=== PATIENT | female | born 1945 | race African-American/Black ===

== ENCOUNTER 2016-06-25 18:20 | Emergency (ER) | payer OTHER ==
[~2016-06-25] VITALS: Ht 162.6 cm; Wt 85.7 kg
[~2016-06-25 18:20] MED LIST: AUGMENTIN 875-1 EACH PO; DOXYCYCLINE HY100 M2 PO; FLONASE ALLERG9.9 ML NAS; IBU600 MG PO; LISINOPRIL HCTZ1 TAB PO; METFORMIN1000 MG PO; PREDNISONE20 M1 PO; PROAIR RESPICL90 MCG PO; SIMVASTATIN20 MG PO; SYNTHROID50 MCG PO; TESSALON PERLE100 M1 PO; ZITHROMAX250 M2 PO
[2016-06-25 18:25] VITALS: BP 150/84
[2016-06-25] MEDS ORDERED: SIMVASTATIN40 M1 PO (18:48)
[2016-06-25] MEDS ORDERED: METFORMIN HCL500 M4 PO (18:48)
[2016-06-25] MEDS ORDERED: HYDROCHLOROTHIA25 M1 PO (18:50)
[2016-06-25] MEDS ORDERED: FLONASE ALLERG9.9 ML NASB (18:51)
[2016-06-25] MEDS ORDERED: ALLERGY EYE DRO15 ML OP (18:52)
--- NOTE | 2016-06-25 19:00 | ED INFLUENZA/URI COMPLAINT ---
History of Present Illness General Chief Complaint: Allergy Symptoms Stated Complaint: PT HAS ALLEGRY PROBLEM Source: patient Exam Limitations: no limitations Vital Signs & Intake/Output Vital Signs & Intake/Output Vital Signs Date Time Temp Pulse Resp B/P B/P Pulse O2 O2 Flow FiO2 Mean Ox Delivery Rate 06/25 1825 97.8 74 18 150/84 98 Room Air Allergies Coded Allergies: NO KNOWN ALLERGIES (02/20/16) Reconcile Medications Fluticasone Propionate (Flonase Allergy Relief) 50 MCG/ACTUATION SPRAY.SUSP 2 SPRAY NASB PRN ALLERGIES (Reported) Hydrochlorothiazide (Unknown Strength) TABLET (Unknown Dose) PO DAILY DIURETIC (Reported) Levothyroxine Sodium (Synthroid) 50 MCG TABLET 1 TAB PO DAILY AC THYROID ( Reported) Metformin HCl (Metformin HCl ER) 500 MG TAB.ER.24H 1 TAB PO QPM DM (Reported) Mometasone Furoate (Nasonex) 50 MCG SPRAY.PUMP 2 SPRAY NASB DAILY nasal spray Naphazoline HCl/Pheniramine (Allergy Eye Drops) (Unknown Strength) DROPS ( Unknown Dose) OP DAILY PRN ALLERGIES- BOTH EYES (Reported) Olopatadine HCl (Patanol) 0.1 % DROPS 1 GTT OPH BID conjunctivitis Simvastatin (Simvastatin*) 40 MG TABLET 1 TAB PO QAM CHOLESTEROL (Reported) Triage Note: PT COMPLAINS OF STUFFY EYES , RED SWOLLEN, SINUS PRESSURE, TAKING CLARITIN WITH NO RELIEF Triage Nurses Notes Reviewed? yes Onset: Abrupt Duration: day(s):, constant, continues in ED Timing: recent history Severity: moderate, severe No Modifying Factors: none HPI: 70-year-old female comes into emergency room for further evaluation of runny nose, itchiness to her eyes, swelling of eyes. Symptoms going on for the past couple days. Denies any fever. Denies any vomiting. Some sinus congestion associated with it. Patient has been taking Claritin with no relief. Denies any other associated symptoms. Nothing seemed to make the symptoms better or worse. (NEAL MIRANDA) Past History Travel History Traveled to [place] past 21 day No Medical History Any Pertinent Medical History? 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 No (NEAL MIRANDA) Review of Systems Review of Systems Constitutional: Reports: no symptoms. EENTM: Reports: see HPI. Respiratory: Reports: no symptoms. Cardiovascular: Reports: no symptoms. GI: Reports: no symptoms. Genitourinary: Reports: no symptoms. Musculoskeletal: Reports: no symptoms. Skin: Reports: no symptoms. Neurological/Psychological: Reports: no symptoms. Hematologic/Endocrine: Reports: no symptoms. Immunologic/Allergic: Reports: no symptoms. All Other Systems: Reviewed and Negative (NEAL MIRANDA) Physical Exam Physical Exam General Appearance: well developed/nourished, alert, awake Head: atraumatic, normal appearance Eyes: Bilateral: PERRL, other (sclera mildly injected.). Ears, Nose, Throat: normal ENT inspection, moist mucous membrane Neck: normal inspection, full range of motion Respiratory: normal breath sounds, no respiratory distress Cardiovascular: regular rate/rhythm Back: normal inspection Extremities: normal inspection, normal range of motion, no edema Neurologic/Psych: awake, alert, oriented x 3, normal gait Skin: intact, normal color Core Measures Severe Sepsis Present: No Septic Shock Present: No (NEAL MIRANDA) Progress Differential Diagnosis: influenza, meningitis, neutropenia, otitis, pneumonia, pharyngitis, sinusitis, allergic rhinitis, allergic conjunctivitis, Plan of Care: 06/25/2016 7:28:40 PM Patient clinically looks well. Symptoms are more allergic in nature. Follow-up with primary care doctor. Return if any concerns worsening symptoms. Patient understands and agrees with plan of care. Initial ED EKG: none Prior EKG: unchanged (NEAL MIRANDA) Departure Departure Disposition: HOME OR SELF CARE Condition: Stable Clinical Impression Primary Impression: Allergic conjunctivitis and rhinitis Referrals: MAKAYLA BELCHER DO (PCP/Family) Additional Instructions: Use pantanol and Nasonex as prescribed. Follow-up with your primary care doctor. Return if any concerns worsening symptoms. Please go over all results of today's visit with your primary care doctor. Contact your primary care doctor to let them know you were here in the emergency room. There may be nonspecific findings which may not be related to your visit today here in the emergency room but may require further evaluation and chronic monitoring by your primary care doctor. If you had a laceration today the chance of foreign body always remains. You should follow-up with your primary care doctor for recheck in 3-5 days for a wound check. If you had an x-ray done there is a chance that a fracture could have been missed on initial read and you should follow-up with your primary care doctor for repeat x-rays if symptoms persist. If your blood pressure was elevated here in the emergency room please have rechecked by her primary care doctor within the next 48 hours by your primary care doctor. If you were prescribed a narcotic here in the emergency room or any type of controlled substances you're not allowed to drive while taking this medication or operate any type of heavy machinery. Narcotics can make you feel lightheaded dizziness nausea and can cause constipation. You may need to hand picker a stool softener. Thank you for choosing [facility] emergency room. Please return to the emergency room immediately if you have any other concerns worsening of symptoms. Departure Forms: Customer Survey General Discharge Information Prescriptions: Current Visit Scripts Olopatadine HCl (Patanol) 1 GTT OPH BID #10 ML Mometasone Furoate (Nasonex) 2 SPRAY NASB DAILY #1 INHAL (NEAL MIRANDA) PA/PARKING ASSISTANT Co-Sign Statement Statement: ED Attending supervision documentation- [X] I saw and evaluated the patient. I have also reviewed all the pertinent lab results and diagnostic results. I agree with the findings and the plan of care as documented in the PA's/PARKING ASSISTANT's documentation. [X] I have reviewed the ED Record and agree with the PA's/PARKING ASSISTANT's documentation. [] Additions or exceptions (if any) to the PAs/PARKING ASSISTANT's note and plan are summarized below: [] (CARMENCITA CARMICHAEL,MELIA Junior)
[2016-06-25] MEDS ORDERED: NASONEX17 GM NASB (19:04)
[2016-06-25] MEDS ORDERED: PATANOL5 ML OPH (19:04)
== END 2016-06-25 19:20 ==
LOC: ERH 18:20
DX: H10.13 Acute atopic conjunctivitis, bilateral (principal); J30.9 Allergic rhinitis, unspecified

== ENCOUNTER 2016-08-23 16:57 | Emergency (ER) | payer OTHER ==
[~2016-08-23] VITALS: Ht 162.6 cm; Wt 85.7 kg
[~2016-08-23 16:57] MED LIST changes: +ALLERGY EYE DRO15 ML OP; +FLONASE ALLERG9.9 ML NASB; +HYDROCHLOROTHIA25 M1 PO; +METFORMIN HCL500 M4 PO; +NASONEX17 GM NASB; +PATANOL5 ML OPH; +SIMVASTATIN40 M1 PO
--- NOTE | 2016-08-23 18:05 | ED GENERAL ADULT ---
History of Present Illness General Chief Complaint: Animal/Insect Bite Stated Complaint: BUG BITE LFT HAND Source: patient Exam Limitations: no limitations Vital Signs & Intake/Output Vital Signs & Intake/Output Vital Signs Date Time Temp Pulse Resp B/P B/P Pulse O2 O2 Flow FiO2 Mean Ox Delivery Rate 08/23 1958 98.5 65 20 118/60 Room Air 08/23 1704 97.8 82 16 123/75 98 Room Air Allergies Coded Allergies: NO KNOWN ALLERGIES (02/20/16) Triage Note: 70F C/O LEFT TOP OF HAND SWELLING WITH WARMTH SINCE LAST NIGHT, UNSURE IF BIT BY SOMETHING. NO BITE TELMA OBSERVED, SKIN INTACT. PUFFY SWELLING NOTED. +ITCHING/-PAIN. COLD COMPRESSES AND ALEVE 4 HOURS AGO WITH MINIMAL RELIEF. AFEBRILE Triage Nurses Notes Reviewed? yes HPI: 70-year-old female with a history of diabetes, hypertension, hyperlipidemia, hypothyroid presenting with atraumatic left hand swelling since yesterday. He reports that the back of her hand and initially felt periodic, did not notice any insect bites or rashes. [place] gradual onset of swelling throughout the night. Has been trying Motrin and ice without relief. Denies trauma. Denies fevers, numbness or paresthesias. (DELMAR RANGEL,DENISHA) Reconcile Medications Diphenhydramine HCl (Benadryl) 25 MG CAPSULE 1 CAP PO EVERY 6 HOUR allergic reaction Levothyroxine Sodium (Synthroid) 50 MCG TABLET 1 TAB PO DAILY AC THYROID ( Reported) Lisinopril/Hydrochlorothiazide (Lisinopril-Hctz 20-25 MG Tab) 20 MG-25 MG TABLET 1 TAB PO DAILY BP (Reported) Metformin HCl (Metformin HCl ER) 500 MG TAB.ER.24H 1 TAB PO QAM DM (Reported) Metformin HCl (Metformin HCl ER) 500 MG TAB.ER.24H 2 TAB PO QPM DM (Reported) Simvastatin (Simvastatin*) 40 MG TABLET 1 TAB PO QAM CHOLESTEROL (Reported) (CHARLES CARMICHAEL,FAITH) Past History Travel History Traveled to [place] past 21 day No Medical History Any Pertinent Medical History? 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 No (DENISHA JACOBSEN PA-C) Review of Systems Review of Systems Constitutional: Reports: no symptoms. Respiratory: Reports: no symptoms. Cardiovascular: Reports: no symptoms. GI: Reports: no symptoms. Genitourinary: Reports: no symptoms. Musculoskeletal: Reports: see HPI (left hand swelling). Skin: Reports: no symptoms. Neurological/Psychological: Reports: no symptoms. (DENISHA JACOBSEN PA-C) Physical Exam Physical Exam General Appearance: well developed/nourished, no apparent distress, alert, awake , comfortable Head: atraumatic Respiratory: normal breath sounds, lungs clear Cardiovascular: regular rate/rhythm, normal peripheral pulses Extremities: on exam there is edema to the dorsum of the left hand confined to the area of the metacarpals, does not involve the phalanges. There is no erythema, increased warmth, abrasions, lacerations, ecchymosis, insect bites. Sensation is intact to the median/radial/ulnar nerves. Motor strength is 5 out of 5 with flexion/extension of the digits, interosseous strength, hand wireless development manager strength. Cap refill less than 2 seconds. There is no point tenderness to palpation. Under strict range of motion at all MCP/PIPs/DIPs. Neurologic/Psych: awake, alert, oriented x 3, normal mood/affect Core Measures ACS in differential dx? No CVA/TIA Diagnosis: No Severe Sepsis Present: No Septic Shock Present: No (DENISHA JACOBSEN PA-C) Progress Differential Diagnoses I considered the following diagnoses in my evaluation of the patient: [Allergic reaction versus cellulitis vs abscess versus spontaneous fracture] Plan of Care: Hand x-ray was unremarkable. Exam shows no signs of cellulitis, including no erythema or increased warmth. Suspect possible allergic reaction as the area is pruritic. Patient instructed to try a course of Benadryl around the clock for 48 hours. Shechter to continue cold compresses to help alleviate swelling. Will follow up with her primary care provider in the next 2 days. Initial ED EKG: none (DENISHA JACOBSEN PA-C) Departure Departure Disposition: HOME OR SELF CARE Condition: Stable Clinical Impression Primary Impression: Swelling of left hand Referrals: MAKAYLA BELCHER DO (PCP/Family) Additional Instructions: History 5 mg of Benadryl every 6 hours for the next 48 hours. Apply cold compresses to the swollen area 2-3 times daily to help alleviate swelling. Follow-up with her primary care provider in the next 2 days for reevaluation. Return to the ED for any new or worsening symptoms. Departure Forms: Customer Survey General Discharge Information (DENISHA JACOBSEN PA-C) Departure Prescriptions: Current Visit Scripts Diphenhydramine HCl (Benadryl) 1 CAP PO EVERY 6 HOUR 2 Days PA/TECHNICAL SERVICES LIBRARIAN Co-Sign Statement Statement: ED Attending supervision documentation- [X] I saw and evaluated the patient. I have also reviewed all the pertinent lab results and diagnostic results. I agree with the findings and the plan of care as documented in the PA's/TECHNICAL SERVICES LIBRARIAN's documentation. [X] I have reviewed the ED Record and agree with the PA's/TECHNICAL SERVICES LIBRARIAN's documentation. [] Additions or exceptions (if any) to the PAs/TECHNICAL SERVICES LIBRARIAN's note and plan are summarized below: [] (CHARLES CARMICHAEL,FAITH) Critical Care Note Critical Care Note Critical Care Time: non-applicable (DENISHA JACOBSEN PA-C)
[2016-08-23] MEDS ORDERED: METFORMIN HCL500 M4 PO ×2 (19:00)
[2016-08-23] MEDS ORDERED: LISINOPRIL-HCT1 EAC1 PO (19:01)
--- NOTE | 2016-08-23 19:13 | RADIOLOGY REPORT ---
EXAMINATION: XR HAND, LEFT CLINICAL INFORMATION: Swelling dorsum of left hand. Tenderness over the fourth metacarpal. COMPARISON: None TECHNIQUE: AP, lateral, and oblique views of the left hand. FINDINGS: No fracture. No dislocation. Bone and joint are normal. IMPRESSION: Normal left hand.
[2016-08-23] MEDS ORDERED: BENADRYL25 MG PO (19:50)
[2016-08-23 19:59] VITALS: BP 118/60
== END 2016-08-23 19:57 ==
LOC: ERH 16:57
DX: M79.89 Other specified soft tissue disorders (principal)
CPT/HCPCS: 73130-LT

== ENCOUNTER → 2016-09-06 | Day surgery (SDC) | payer OTHER ==
[~2016-09-06] VITALS: Ht 162.6 cm; Wt 86.2 kg
[~2016-09-06] MED LIST changes: +BENADRYL25 MG PO; +LISINOPRIL-HCT1 EAC1 PO; +[UNRECOGNIZED DRUG - OTHER]
--- NOTE | 2016-09-06 10:34 | Operative Report ---
Operative/Inv Procedure Report Surgery Date: 09/06/16 Name of Procedure: Cataract extraction lens implantation left eye Pre-Operative Diagnosis: Age-related cataract left eye 20/40 vision 20/500 glare vision Post-Operative Diagnosis: Same Estimated Blood Loss: none Surgeon/Industrial Recruiter: NESTOR CARMICHAEL,CASE Alba Anesthesia: local monitored anesthesi Complications: None Operative/Procedure Note Note: The patient was brought to the operating room standard monitoring equipment was attached the patient was prepped and draped in the usual fashion for intraocular surgery. A lid speculum was placed to retract the lids. The case was begun by making a temporal incision with a 2.4 mm keratome. The eye was stabilized with a Rangel ring during this incision. 1 mL of non-preserved lidocaine was introduced into the anterior chamber to provide anesthesia. The anterior chamber was then filled and deepened with viscoelastic. A curvilinear capsulorrhexis was achieved using a 30-gauge needle and is a cystotome and capsulorrhexis was finished using a Utrata forceps. A second or paracentesis incision was made temporally with a 1 mm MVR blade. The lens was then hydrodissected with balanced salt solution and found to be rotatable. The lens was emulsified using phacoemulsification and a modified four-quadrant cracking technique. The residual cortical material was removed using automated irrigation and aspiration and as much of the anterior capsular rim was cleaned as well as possible. The posterior capsule was cleaned first with the automated machine on a low setting and then manually with a Kishan squeegee. The capsular bag was deepened with viscoelastic. The lens a Technis 1 23.0 Diopter placed into the bag under direct visualization and rotated so that the haptics were at 12 and 6:00. Viscoelastic was then removed from the eye by flushing it out and then by automated irrigation and aspiration. The eye was pressurized to a normal tone. 1/10 of a cc of vancomycin solution was introduced into the anterior chamber to provide antibiotic prophylaxis. The wounds were sealed by hydrating the stroma adjacent to them and the eye was left at a proper tone after the wounds were checked and found not to be leaking. The lid speculum was removed from the orbit. Antibiotic and steroid drops were placed on the eye and then the eye was shielded. Monitoring equipment was removed from the patient and the patient was removed from the operative suite to the holding area. The patient tolerated the procedure well and will be seen in the office tomorrow.
== END ==
LOC: STS 01:45
DX: H25.9 Unspecified age-related cataract (principal); E11.9 Type 2 diabetes mellitus without complications; Z79.84 Long term (current) use of oral hypoglycemic drugs; E03.9 Hypothyroidism, unspecified; I10 Essential (primary) hypertension
CPT/HCPCS: J2250; V2632

== ENCOUNTER 2017-04-03 16:21 | Inpatient (IN) | payer OTHER ==
[~2017-04-03] VITALS: Ht 162.6 cm; Wt 84.4 kg
--- NOTE | 2017-04-03 17:10 | ED INFLUENZA/URI COMPLAINT ---
History of Present Illness General Chief Complaint: Upper Respiratory Sx/Fever Stated Complaint: COUGH,CHILLS Source: patient Exam Limitations: no limitations Vital Signs & Intake/Output Vital Signs & Intake/Output Vital Signs Date Time Temp Pulse Resp B/P B/P Pulse O2 O2 Flow FiO2 Mean Ox Delivery Rate 04/03 2038 101.8 110 20 145/82 96 Room Air 04/03 1938 Room Air 04/03 1700 100.6 04/03 1646 100.6 108 18 178/87 97 Room Air Room Air Allergies Coded Allergies: NO KNOWN ALLERGIES (02/20/16) Reconcile Medications [HYDROCHLOOTHIAZIDE] HTN (Reported) Levothyroxine Sodium (Synthroid) 50 MCG TABLET 1 TAB PO DAILY AC THYROID ( Reported) Lisinopril/Hydrochlorothiazide (Lisinopril-Hctz 20-25 MG Tab) 20 MG-25 MG TABLET 1 TAB PO DAILY BP (Reported) Metformin HCl (Metformin HCl ER) 500 MG TAB.ER.24H 1 TAB PO QAM DM (Reported) Metformin HCl (Metformin HCl ER) 500 MG TAB.ER.24H 2 TAB PO QPM DM (Reported) Simvastatin (Simvastatin*) 40 MG TABLET 1 TAB PO QAM CHOLESTEROL (Reported) Triage Note: PT TO ED WITH C/O COUGH, CONGESTION CHILLS, TEMP 100.6 IN TRIAGE. Triage Nurses Notes Reviewed? yes Onset: Gradual Duration: day(s): (2-3) Timing: remote history Severity: moderate Severity Numbers: 8 Prior Episodes/Possible Cause: occassional episodes No Modifying Factors: none Associated Symptoms: cough, fever/chills, nasal congestion, nasal drainage HPI: Patient is a 71-year-old female with hypertension and diabetes presenting to the emergency department with chief complaint of generalized body aches, tactile fevers and chills that have been going on for the past 2-3 days. Positive nasal congestion, positive productive cough. Has been using [id number] medication without relief. Denies nausea or vomiting. No chest pain or shortness of breath. Denies sick contacts or recent travel. No recent antibiotic use. Denies abdominal pain. No change in bowel or bladder function. (Gerhard PHAN,Viviana) Past History Travel History Traveled to [place] past 21 day No Medical History Any Pertinent Medical History? 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 No (Viviana Lopez) Review of Systems Review of Systems Constitutional: Reports: see HPI, chills, fever, malaise. Comments Review of systems: See HPI, All other systems negative. Constitutional, no weight loss HEENT: No visual changes no sore throat Cardiovascular: No chest pain ,palpitation , orthopnea or ankle swelling Skin, no jaundice no rashes Respiratory: No dyspnea OR hemoptysis GI: No nausea no vomiting : No dysuria No hematuria Muscle skeletal: no back pain, no neck pain, Neurologic: No numbness no confusion NO HEADACHES Psych: No stress anxiety or depression,. Heme/endocrine: No bruising no bleeding no polyuria or polydipsia Immunology: No splenectomy or history of AIDS (Viviana Lopez) Physical Exam Physical Exam General Appearance: well developed/nourished, no apparent distress, alert, awake , comfortable Ears, Nose, Throat: nasal congestion, nasal drainage Comments: Well-developed well-nourished person in no acute distress HEENT: Pupils equally round and reactive to light and accommodation. Nose is atraumatic. External auditory canal and Tympanic membranes clear. Pharynx normal. No swelling or edema. Clear nasal discharge bilaterally. Neck: Supple, no lymphadenopathy, normal range of motion without pain or tenderness Back: Nontender Cardiovascular: Tachycardic rate and rhythms no murmurs rubs or gallops, normal JVP Respiratory: Chest nontender. No respiratory distress.breath sounds diminished to auscultation bilaterally Abdomen: Soft, nontender nondistended, no appreciable organomegaly. Normal bowel sounds. No ascites Extremity: No edema, no calf tenderness to palpation, normal and equal pulses. Neuro: Alert oriented x3 Skin: No appreciable rash on exposed skin, skin is warm and dry. Psych: Mood and affect is normal, memory and judgment is normal. Core Measures Sepsis Present: No Sepsis Focused Exam Completed? No (Gerhard PA,Viviana) Progress Differential Diagnosis: influenza, pneumonia, pharyngitis, sinusitis Plan of Care: Orders Procedure Date/time Status Consistent Carbohydrate 1 04/04 B Active LACTIC ACID 04/03 2330 Active Misc Message 04/03 2153 Active ED Holding Orders 04/03 2153 Active Admit to inpatient 04/03 2153 Active Vital Signs 04/03 2153 Active Code Status 04/03 2153 Active LACTIC ACID 04/03 2030 Active EKG 04/03 1952 Active BLOOD CULTURE 04/03 1739 Active COMPREHENSIVE METABOLIC PANEL 04/03 1739 Complete CBC WITHOUT DIFFERENTIAL 04/03 1739 Complete RAPID VIRAL INFLUENZA A 04/03 1653 Complete Current Medications Sig/Carlyle Start time Last Medication Dose Stop Time Status Admin Sodium Chloride 1,000 ML BOLUS ONE 04/03 2044 AC 04/03 (Normal Saline 0.9%) 04/03 Laboratory Tests 04/03/17 1950: Anion Gap 14, Estimated GFR > 60, BUN/Creatinine Ratio 11.1, Glucose 115 H, Calcium 9.6, Total Bilirubin 0.5, AST 23, ALT 17, Alkaline Phosphatase 86, Total Protein 8.1, Albumin 4.3, Globulin 3.8, Albumin/Globulin Ratio 1.1, CBC w Diff NO MAN DIFF REQ, RBC 4.81, MCV 77.6 L, MCH 24.4 L, MCHC 31.5 L, RDW 15.3 H, MPV 7.1 L, Gran % 74.5, Lymphocytes % 16.2 L, Monocytes % 9.0, Eosinophils % 0.2, Basophils % 0.1, Absolute Granulocytes 5.1, Absolute Lymphocytes 1.1 L, Absolute Monocytes 0.6, Absolute Eosinophils 0, Absolute Basophils 0 Microbiology 04/03 2022 BLOOD: Blood Culture - RECD 04/03 1958 BLOOD: Blood Culture - RECD 04/03 1657 NASOPHARYN: Influenza Virus A & B Rapid Smear - COMP INFLUENZA TYPE A Patient still febrile after Tylenol. IV fluids initiated. Still pending lactic acid. Patient treated for pneumonia and influenza. Patient will be admitted to the hospital for pneumonia and influenza. Patient feeling slightly improved after breathing treatment. Oxygen saturation remains within normal limits. Diagnostic Imaging: Viewed by Me: Radiology Read. Discussed w/RAD: Radiology Read. Radiology Impression: PATIENT: JOSE MONTEMAYOR PRESENT AGE: 71 PATIENT ACCOUNT NO: [id number] : 46 LOCATION: [facility] ORDERING PHYSICIAN: Viviana HPAN SERVICE DATE: 04/03/17 EXAM TYPE: RAD - XRY-CHEST XRAY, TWO VIEWS EXAMINATION: XR CHEST CLINICAL INFORMATION: Rule out pneumonia shortness of breath congestion COMPARISON: Prior chest October 2015 TECHNIQUE: 2 views of the chest were obtained. FINDINGS: There is focal opacity in the left lower lobe There is additional generalized increase in interstitial markings throughout both lungs. The cardiac silhouette is normal. Bone and soft tissues: Unremarkable. IMPRESSION: Focal consolidation the left lower lobe suspicious for pneumonia. Mild increased interstitial markings bilaterally concerning for concomitant mild pulmonary edema\E\or pulmonary vascular congestion. DICTATED BY: Kain Ann MD DATE/TIME DICTATED:04/03/171725 WESTERN PHILOSOPHY PROFESSOR:CORRINE DATE/TIME TRANSCRIBED:04/03/171725 CONFIDENTIAL, DO NOT COPY WITHOUT APPROPRIATE AUTHORIZATION. <Electronically signed in Other Vendor System> SIGNED BY: Kain Ann MD 04/03/171732 Initial ED EKG: NSR (64 BPM) (Viviana Lopez) Departure Departure Time of Disposition: 2112 Disposition: STILL A PATIENT Condition: Stable Clinical Impression Primary Impression: Pneumonia Qualifiers: Pneumonia type: due to unspecified organism Laterality: unspecified laterality Lung location: unspecified part of lung Qualified Code: J18.9 - Pneumonia, unspecified organism Secondary Impressions: Influenza A Referrals: Pravin Ricketts DO (PCP/Family) Departure Forms: Customer Survey General Discharge Information Admission Note Spoke With: Kaden Nielsen MD Documentation of Exam: Documentation of any treatments & extenuating circumstances including Concerns Regarding Discharge (functional status, medication knowledge or non-compliance, living conditions, etc.) that warrant an admission rather than observation: Patient requiring IV antibiotics for influenza, serial breathing treatments, Tamiflu, any pulmonology consultation, blood cultures to return, discharged at this time is medically harmful. Due to history of comorbidities and complex nature of having both influenza and pneumonia patient will be in there for treatment. (Viviana Lopez) PA/CRABBER Co-Sign Statement Statement: ED Attending supervision documentation- [X] I saw and evaluated the patient. I have also reviewed all the pertinent lab results and diagnostic results. I agree with the findings and the plan of care as documented in the PA's/CRABBER's documentation. Patient presents for evaluation of flulike symptoms. Physical examination reveals no acute respiratory distress and clear breath sounds bilaterally. [] I have reviewed the ED Record and agree with the PA's/CRABBER's documentation. [] Additions or exceptions (if any) to the PAs/CRABBER's note and plan are summarized below: [] (Janett CARMICHAEL,Rob Andrade) Critical Care Note Critical Care Note Critical Care Time: 30-74 min (Gerhard PHAN,Viviana)
--- NOTE | 2017-04-03 17:33 | RADIOLOGY REPORT ---
EXAMINATION: XR CHEST CLINICAL INFORMATION: Rule out pneumonia shortness of breath congestion COMPARISON: Prior chest October 2015 TECHNIQUE: 2 views of the chest were obtained. FINDINGS: There is focal opacity in the left lower lobe There is additional generalized increase in interstitial markings throughout both lungs. The cardiac silhouette is normal. Bone and soft tissues: Unremarkable. IMPRESSION: Focal consolidation the left lower lobe suspicious for pneumonia. Mild increased interstitial markings bilaterally concerning for concomitant mild pulmonary edema\E\or pulmonary vascular congestion.
[2017-04-03 20:02] LABS: ABSOLUTE BASOPHIL COUNT 0 /CUMM (0.0-0.2); ABSOLUTE EOSINOPHIL COUNT 0 /CUMM (0.0-0.7); ABSOLUTE GRANULOCYTE CT 5.1 /CUMM (1.4-6.5); ABSOLUTE LYMPH COUNT 1.1 /CUMM (1.2-3.4); ABSOLUTE MONOCYTE COUNT 0.6 /CUMM (0.10-0.60); BASOPHIL % 0.1 % (0.0-2.0); EOSINOPHIL % 0.2 % (0-5); HEMATOCRIT 37.3 % (37-47); MEAN CORPUSCULAR HGB 24.4 PG (27.0-31.0); MEAN CORPUSCULAR HGB CONC 31.5 G/DL (33.0-37.0); MEAN CORPUSCULAR VOLUME 77.6 FL (81.0-99.0); MEAN PLATELET VOLUME 7.1 FL (7.4-10.4); PLATELET COUNT 282 /CUMM (130-400); RBC DISTRIBUTION WIDTH 15.3 % (11.5-14.5); RED BLOOD CELL CT 4.81 /CUMM (4.20-5.40); WHITE BLOOD CELL COUNT 6.8 /CUMM (4.8-10.8)
[2017-04-03 20:04] LABS: GRANULOCYTE % 74.5 % (42.2-75.2)
--- NOTE | 2017-04-03 22:06 | History & Physical ---
General Information and HPI Allergies/Medications Allergies: Coded Allergies: NO KNOWN ALLERGIES (02/20/16) Home Med list [HYDROCHLOOTHIAZIDE] HTN (Reported) Levothyroxine Sodium (Synthroid) 50 MCG TABLET 1 TAB PO DAILY AC THYROID ( Reported) Lisinopril/Hydrochlorothiazide (Lisinopril-Hctz 20-25 MG Tab) 20 MG-25 MG TABLET 1 TAB PO DAILY BP (Reported) Metformin HCl (Metformin HCl ER) 500 MG TAB.ER.24H 1 TAB PO QAM DM (Reported) Metformin HCl (Metformin HCl ER) 500 MG TAB.ER.24H 2 TAB PO QPM DM (Reported) Simvastatin (Simvastatin*) 40 MG TABLET 1 TAB PO QAM CHOLESTEROL (Reported) Past History Travel History Traveled to [place] past 21 day No Medical History Neurological: NONE EENT: cataracts Cardiovascular: hypertension, hyperlipidemia Respiratory: NONE Gastrointestinal: NONE Hepatic: NONE Renal: NONE Musculoskeletal: NONE Psychiatric: NONE Endocrine: diabetes, hypothyroidism Blood Disorders: NONE Cancer(s): NONE 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
--- NOTE | 2017-04-03 22:18 | History & Physical ---
Abimael CARMICHAEL,[facility] 04/03/172216: General Information and HPI MD Statement: I have seen and personally examined JOSE WESLEY and documented this H&P. The patient is a 71 year old F who presented with a patient stated chief complaint of [sob]. Source of Information: patient History of Present Illness: 71-year-old female with a past medical history of hypertension, hyperlipidemia, cataracts, hypothyroidism, and diabetes presenting for body aches, fevers, and chills. The patietn states she has had chills, fever, cough for a couple of weeks but acutely worst the past 2 days. She states her SOB has been getting worst the past 2 days. States she got the flu but not the pna vaccine this year. She denies any chest pain, palpitations, n/v, changes in elimination, sick contacts, body aches,abd pain. 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 Respiratory: Reports: cough. Musculoskeletal: Reports: see HPI (body aches). Exam & Diagnostic Data Last 24 Hrs of Vital Signs/I&O Vital Signs Date Time Temp Pulse Resp B/P B/P Pulse O2 O2 Flow FiO2 Mean Ox Delivery Rate 04/04 0809 98.9 94 20 123/59 95 04/04 0637 98.5 84 19 137/62 95 Room Air 04/04 0350 99.4 04/04 0220 102.2 04/04 0159 Room Air 04/04 0138 102.2 04/04 0030 102.8 / 0000 Room Air 04/03 2227 102.6 114 16 162/77 92 Room Air 04/03 2039 101.8 110 20 145/82 96 Room Air 04/03 1938 Room Air 04/03 1700 100.6 04/03 1646 100.6 108 18 178/87 97 Room Air Room Air Intake & Output 04/04 1600 04/04 0800 02 0000 Intake Total 660 0 Output Total Balance 660 0 Intake, IV 600 Intake, Oral 60 0 Patient 186 lb Weight Weight Reported by Patient Measurement Method Physical Exam General Appearance Alert, Oriented X3, Cooperative, No Acute Distress Skin Temp/Moisture Exam: Warm/Dry HEENT No JVD Cardiovascular systolic murmur Lungs b/l basilar crackles Abdomen Normal Bowel Sounds, Soft, No Tenderness Extremities trace LE edema b/l Last 24 Hrs of Labs/Ulices: Laboratory Tests 04/04/17 0558: Anion Gap 9, Estimated GFR > 60, BUN/Creatinine Ratio 11.3, Troponin I 0.02, CBC w Diff NO MAN DIFF REQ, RBC 4.01 L, MCV 76.9 L, MCH 24.5 L, MCHC 31.8 L, RDW 15.6 H, MPV 7.3 L, Gran % 70.3, Lymphocytes % 18.9 L, Monocytes % 10.3 H, Eosinophils % 0.1, Basophils % 0.4, Absolute Granulocytes 4.3, Absolute Lymphocytes 1.2, Absolute Monocytes 0.6, Absolute Eosinophils 0, Absolute Basophils 0 04/04/17 0248: Lactic Acid 1.3 04/03/17 2225: Lactic Acid 1.4 04/03/172030: Lactic Acid Cancelled 04/03/17 1950: Anion Gap 14, Estimated GFR > 60, BUN/Creatinine Ratio 11.1, Glucose 115 H, Hemoglobin A1c 8.5 H, Calcium 9.6, Total Bilirubin 0.5, AST 23, ALT 17, Alkaline Phosphatase 86, Troponin I 0.02, Gsl-E-Xkpxcqlucoe Pept 324 H, Total Protein 8.1, Albumin 4.3, Globulin 3.8, Albumin/Globulin Ratio 1.1, CBC w Diff NO MAN DIFF REQ, RBC 4.81, MCV 77.6 L, MCH 24.4 L, MCHC 31.5 L, RDW 15.3 H, MPV 7.1 L, Gran % 74.5, Lymphocytes % 16.2 L, Monocytes % 9.0, Eosinophils % 0.2, Basophils % 0.1, Absolute Granulocytes 5.1, Absolute Lymphocytes 1.1 L, Absolute Monocytes 0.6, Absolute Eosinophils 0, Absolute Basophils 0 04/03/17 1654: Virus Culture Pending Microbiology 04/04 956 URINE ROUT: Legionella Antigen - COLB 04/04 956 URINE ROUT: Streptococcus pneumoniae Antigen (M - COLB 04/04 956 URINE ROUT: Urine Culture - COLB 04/04 954 LOWER RESP: Respiratory Culture - ORD 04/04 954 LOWER RESP: Gram Stain - ORD 04/03 2022 BLOOD: Blood Culture - RECD 04/03 1958 BLOOD: Blood Culture - RECD 04/03 165 NASOPHARYN: Influenza Virus A & B Rapid Smear - COMP INFLUENZA TYPE A Assessment/Plan Assessment: A: 71-year-old female with a past medical history of hypertension, hyperlipidemia, cataracts, hypothyroidism, and diabetes presenting for body aches, fevers, and chills found to be fluid positive and left lower lobe consolidation suspicious for pneumonia. P: #flu with pna WBC 6.8 LA 1.4 -> 1.3 Flu A + CXR: There is focal opacity in the left lower lobe. There is additional generalized increase in interstitial markings throughout both lungs. -cont tamiflu, ceftriaxone, azithro -f/u repeat cxr #anemia 11.8/37.3 -no signs of overt bleeding, cont to monitor #diabetes -novolog sliding scale #hypothyroidism -cont levothryoxine #hld -atorvastatin #DVT prophylaxis -lovenox #FULL CODE As Ranked By This Provider Problem List: 1. Influenza A 2. Pneumonia Qualifiers Pneumonia type: due to unspecified organism Laterality: unspecified laterality Lung location: unspecified part of lung Qualified Code: J18.9 - Pneumonia, unspecified organism Core Measures/Misc (11/12) Acute Coronary Syndrome ACS Diagnosis: No Congestive Heart Failure Congestive Heart Failure Diagnosis No Cerebrovascular Accident CVA/TIA Diagnosis: No VTE (View Protocol) VTE Risk Factors Acute Medical Illness No Mechanical VTE Prophylaxis d/t Other No VTE Pharm Prophylaxis d/t NA PharmProphylax ordered Sepsis (View protocol) Sepsis Present: No Kaden Nielsen 04/04/17 0521: General Information and HPI Allergies/Medications Home Med list Levothyroxine Sodium (Synthroid) 50 MCG TABLET 1 TAB PO DAILY AC THYROID ( Reported) Lisinopril/Hydrochlorothiazide (Lisinopril-Hctz 20-25 MG Tab) 20 MG-25 MG TABLET 1 TAB PO DAILY BP (Reported) Metformin HCl (Metformin HCl ER) 500 MG TAB.ER.24H 1 TAB PO QAM DM (Reported) Metformin HCl (Metformin HCl ER) 500 MG TAB.ER.24H 2 TAB PO QPM DM (Reported) Simvastatin (Simvastatin*) 40 MG TABLET 1 TAB PO QAM CHOLESTEROL (Reported) Attending MD Review Statement Attending Statement Attending MD Statement: examined this patient, discuss w/resident/PA/HIGH SCHOOL COMPUTER SCIENCE TEACHER, agreed w/resident/PA/HIGH SCHOOL COMPUTER SCIENCE TEACHER, reviewed EMR data (avail), reviewed images, amended to note Attending Assessment/Plan: CC: Fever, chills and cough PMH: HTN, DM, HLD Patient came to ER for 2 day history of cough, started acutely with mild sputum production, gradually worsening, now keeping up whole night. Yesterday he started to have fever and chills, today she started to notice shortness of breath which was progressively worsening along with the cough so she came to ER. She denies body aches, abdominal pain, nausea, vomiting, diarrhea, UTI symptoms, sick contacts. She received flu shot this season. Follows up with PCP regularly. Compliant with her medications. Never smoked. Before this sickness she does not have any worsening of leg swelling, progressive shortness of breath, orthopnea, PND, dyspnea or exertion or chest pain on exertion. Vitals: T max 102.8, pulse 108, RR 18, blood pressure 178/87, saturating 97% on room air On exam: A O 3, cooperative, in distress, warm to touch, neck supple, questionable JVD elevation, no lymphadenopathy, mucosa moist, no focal neurological deficit, no dependent edema, no obvious skin rashes or inflammation CVS: S1-S2, RRR, systolic murmur. RS: Bilateral rhonchi in upper torres, crackles in bases left more than right. Abdomen: Soft, NT, ND, bowel sounds present. Peripheral pulses perfusion normal Labs: WBC 6.8, hemoglobin 11.8, hematocrit 37.3, platelet 282, neutrophils 74%, sodium 139, potassium 4.2, chloride 97, bicarbonate 27, BUN 10, creatinine 0.9, glucose 115, calcium 9.6, LFT unremarkable, lactate 1.4, troponin 0.02, influenza positive CXR: Focal consolidation the left lower lobe suspicious for pneumonia. Mild increased interstitial markings bilaterally concerning for concomitant mild pulmonary edema\E\or pulmonary vascular congestion. ECG: No acute changes Assessment and plan 71-year-old female with past medical history significant for HTN, DM, HLD presented in ER for acute worsening of cough with mild sputum production, fever and chills and was found to have fever of 101.8 in ER. She has crackles bilaterally left more than tried and rhonchi. She has small systolic murmur appears to be flow murmur, JVD is difficult to assess. Does not have any leg swelling. Found to have rapid flu positive. Chest x-ray is also positive for pneumonia with focal left consolidation. I personally reviewed the x-ray for pulmonary edema/vascular congestion. I could not appreciate significant pulmonary edema, we will repeat x-ray for further development. At this point it appears reactionary secondary to flu. + Influenza + Pneumonia + History of DM, HTN, HLD - Admit to general medicine - Continue gentle hydration for 1 L proBNP is normal - Trend lactate - Continue Tamiflu, azithromycin and ceftriaxone - Trend troponin and ECG - Repeat chest x-ray in a.m. - Continue home medications of Synthroid, hold lisinopril HCTZ combination for tonight, resume from tomorrow with blood pressure stable - Continue sliding scale insulin - DVT prophylaxis and DVT prophylaxis - patient is full code , Her immediate family, health care proxy is one of her friends If required Scotty CARMICHAEL,[facility] 04/04/17 0751: Resident Review Statement Resident Statement: examined this patient, discussed with programming internship, agreed with programming internship, discussed with family Other Findings: Mr. Wesley 71 year old -Albanian female with past medical history hypertension, hyperlipidemia, diabetes mellitus who presented with chief complaint of chills, fever subjective, productive cough for couple of weeks. Patient reported nasal congestion, denied ear pain, sore throat, body aches, history of sick contact. 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 She denied any dizziness, blurry vision, chest pain, palpitation, difficulty breathing, abdominal pain, nausea or vomiting, diarrhea or gross patient, joint or muscle pain. She had her flu vaccine this season however no pneumonia vaccine. Problem list #Flu positive A #Community-acquired pneumonia #Sepsis #Hyperdynamic systolic murmur #Hypertension #Diabetes Plan -Admit to general medical floor -Tamiflu -Ceftriaxone and azithromycin -Troponin and EKG -We'll give 1 bag of normal saline 100 mL per hour -Repeat lactic acid -Close monitor, patient is sick, prevent septic shock -Hold Lasix and hydrochlorothiazide, evaluate the patient in a.m. if not stable start blood pressure medication -Accu-Chek and NovoLog sliding scale low-dose -Echocardiogram -ProBNP -Chest x-ray 8 AM to evaluate for any worsening of consolidation -Diet diabetic -DVT prophylaxis Lovenox -Code full
--- NOTE | 2017-04-04 05:23 | Admission Certification ---
Admission Certification Certification Statement - As attending physician, I certify that at the time of - admission, based on clinical presentation, severity of - symptoms, need for further diagnostic testing and - therapeutic interventions, and risk of adverse outcomes - without in-hospital treatment, in my clinical assessment, - this patient requires an acute hospital stay for a minimum - of two nights or longer. I have also considered psychsocial - factors such as support system, advanced age, financial - issues, cognitive issues, and failed out-patient treatments, - past re-admission history, safety of patient, and lack of - compliance as applicable. Specific rationale supporting this admission is: Influenza, pneumonia
[2017-04-04 06:22] LABS: ABSOLUTE BASOPHIL COUNT 0 /CUMM (0.0-0.2); ABSOLUTE EOSINOPHIL COUNT 0 /CUMM (0.0-0.7); ABSOLUTE GRANULOCYTE CT 4.3 /CUMM (1.4-6.5); ABSOLUTE LYMPH COUNT 1.2 /CUMM (1.2-3.4); ABSOLUTE MONOCYTE COUNT 0.6 /CUMM (0.10-0.60); BASOPHIL % 0.4 % (0.0-2.0); EOSINOPHIL % 0.1 % (0-5); GRANULOCYTE % 70.3 % (42.2-75.2); MEAN CORPUSCULAR HGB 24.5 PG (27.0-31.0); MEAN CORPUSCULAR HGB CONC 31.8 G/DL (33.0-37.0); MEAN CORPUSCULAR VOLUME 76.9 FL (81.0-99.0); MEAN PLATELET VOLUME 7.3 FL (7.4-10.4); PLATELET COUNT 242 /CUMM (130-400); RBC DISTRIBUTION WIDTH 15.6 % (11.5-14.5); RED BLOOD CELL CT 4.01 /CUMM (4.20-5.40); WHITE BLOOD CELL COUNT 6.2 /CUMM (4.8-10.8)
[2017-04-04 06:47] LABS: HEMATOCRIT 30.9 % (37-47)
--- NOTE | 2017-04-04 07:29 | RADIOLOGY REPORT ---
EXAMINATION: XR CHEST CLINICAL INFORMATION: Pneumonia COMPARISON: 04/03/2017 TECHNIQUE: 2 views of the chest were obtained. FINDINGS: Lungs remain hypoinflated. There is bronchial wall thickening in mid and lower lung zones. Again noted is patchy opacity in the left lower lobe and lingula. There is persistent streaky peribronchial opacity in the medial aspect of the right lower lobe. No pleural effusion or pneumothorax. Cardiac silhouette is normal in size. Osteoarthritis of bilateral glenohumeral joints. The mild widening of the left acromioclavicular joint could be due to remote grade 2 acromioclavicular sprain. IMPRESSION: Multilobar pneumonia remains similar in appearance compared to 04/03/2017.
--- NOTE | 2017-04-04 09:12 | PN- Housestaff ---
Alphonso Mcneal MD 04/04/17911: Subjective Follow-up For: sepsis multilobar pneumonia influenza Subjective: patient complaining primarily of fever and productive cough of white sputum Review of Systems Constitutional: Reports: see HPI. Objective Last 24 Hrs of Vital Signs/I&O Vital Signs Date Time Temp Pulse Resp B/P B/P Pulse O2 O2 Flow FiO2 Mean Ox Delivery Rate 04/04 1742 98.1 87 18 155/72 04/04 1544 98.1 87 20 155/72 96 Room Air 04/04 1420 99.1 04/04 1234 100.1 92 20 143/72 94 04/04 1010 98.0 82 20 133/66 96 04/04 0809 98.9 94 20 123/59 95 04/04 0637 98.5 84 19 137/62 95 Room Air 04/04 0350 99.4 04/04 0220 102.2 04/04 0159 Room Air 04/04 0138 102.2 04/04 0030 102.8 04/04 0000 Room Air 04/03 2227 102.6 114 16 162/77 92 Room Air 04/03 2039 101.8 110 20 145/82 96 Room Air Intake & Output 04/04 1600 04/04 0800 04/04 0000 Intake Total 240 660 0 Output Total 300 Balance -60 660 0 Intake, IV 600 Intake, Oral 240 60 0 Output, Urine 300 Patient 84.368 kg Weight Weight Reported by Patient Measurement Method Physical Exam General Appearance: Alert, Oriented X3, Cooperative, No Acute Distress Cardiovascular: Regular Rate, Normal S1, Normal S2, No Murmurs Lungs: diffuse rhonchi, diminished at bases Abdomen: Normal Bowel Sounds, Soft, No Tenderness, No Masses Extremities: No Clubbing, No Cyanosis, No Edema, Normal Pulses Assessment/Plan Assessment: 71 year old female with past medical history significant for HTN, HLD, DM, nonsmoker presents with fevers, chills and productive cough. Unknown sick contacts, had influenza vaccine, influenza positive on presentation Sepsis tachycardia/fever with multilobular community-acquired pneumonia patchy opacity in the left lower lobe and lingula. streaky peribronchial opacity in the medial aspect of the right lower lobe Intravascular volume resuscitation with crystalloid Continue ceftriaxone and azithromycin Follow up sputum/blood cultures, and urinary legionella and strep pneumo Lactic acid normal Influenza: Continue tamiflu and supportive care tyenol for antipyretics Hypertension: Held at admission Resumed lisinpopril Will resume HCTZ if continues to be hypertensive Diabetes Hold oral hypoglycemics Novolog insulin sliding scale Accuchecks TIDAC/HS hgb a1c 8.5 Diabetic diet DVT ppx-lovenox 40mg subcutaneous daily Full code Problem List: 1. Pneumonia 2. Influenza A 3. Sepsis Pain Ratin Pain Location: n/a Pain Goal: Pain 4 or less Pain Plan: n/a Tomorrow's Labs & Rationales: none Adnrew Guerrier MD 04/04/17 1407: Attending MD Review Statement Attending Statement Attending MD Statement: examined this patient, discuss w/resident/PA/ADMINISTRATIVE NURSING SUPERVISOR, agreed w/resident/PA/ADMINISTRATIVE NURSING SUPERVISOR, reviewed EMR data (avail) Attending Assessment/Plan: 71F PMH HTN, HLD, T2DM admitted with 1 week of fever, chills, cough, nasal congestion, found to be Influenza A positive with multilobar pneumonia on CXR, febrile 102.8 with tachycardia 110's, WBC 6.4. Patient feels better today. She looks well and only complains of fatigue and nasal congestion. 1. Influenza A multilobar pneumonia 2. Sepsis 3. Nasal congestion Plan - Continue on general medicine - Continue Tamiflu - Will continue Ceftriaxone and Azithromycin for now and follow sputum cultures, though do not suspect bacterial pneumonia in this patient given lack of purulent sputum - Send Legionella and S.pneumo antigens - Start Nasonex for nasal congestion - Continue home medications, holding anti-hypertensives for now - DVT PPx
[2017-04-04 15:44] VITALS: BP 155/72
--- NOTE | 2017-04-04 18:53 | ECHOCARDIOGRAM REPORT ---
JOSE MONTEMAYOR Age: 71 : 1945 Gender: F Exam Date: 04/04/2017 15:44 Exam Location: ER Ht (in): 65 Wt (lb): 186 BSA: 2.00 BP: 131 / 62 Ordering Physician: Kathryn Fajardo MD Referring Physician: Kathryn Fajardo MD Technologist: Radha Harvey LEX Room Number: ER#[id number] Indications: MURMUR/CLICK Rhythm: Sinus Technical Quality: Fair FINDINGS Left Ventricle Normal size left ventricle. No obvious regional wall motion abnormalities. Left ventricular wall thickness increased. Normal left ventricular ejection fraction estimated at 60-65%. Right Ventricle Right ventricle not well visualized, grossly normal. Right Atrium Normal right atrial size. Left Atrium Mild left atrial dilatation. Mitral Valve Mild thickening/calcification of the anterior mitral valve leaflet. Mitral annular calcification. Mild mitral regurgitation. Aortic Valve Trileaflet aortic valve. Diffuse thickening (sclerosis) of the aortic valve cusps without reduced excursion. Mild aortic stenosis. Mild aortic regurgitation. Tricuspid Valve Tricuspid valve not well visualized, grossly normal. Mild tricuspid regurgitation. Pulmonic Valve Pulmonic valve not well visualized, grossly normal. Pericardium No pericardial effusion. Great Vessels Normal size aortic root and proximal ascending aorta. CONCLUSIONS 1. 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 2. Thickening and calcification of the mitral leaflets is present with anular calcification and mild mitral insufficiency with mild left atrial enlargement. 3. There is no pericardial fluid present. 4. The left ventricular chamber size and systolic function are normal with mild concentric hypertrophy and no resting wall motion abnormalities. 5. MIld tricuspid insufficiency is present with no evidence of pulmonary hypertension. Frances Casey M.D. (Electronically Signed) Final Date: 04 April 2017 18:52 MEASUREMENTS (Male / Female) Normal Values 2D ECHO LV Diastolic Diameter PLAX 4.2 cm 4.2 - 5.9 / 3.9 - 5.3 cm LV Systolic Diameter PLAX 2.8 cm 2.1 - 4.0 cm LV Fractional Shortening PLAX 33.3 % 25 - 46 % LV Ejection Fraction 2D Teich 62.4 % IVS Diastolic Thickness 1.3 cm LVPW Diastolic Thickness 1.3 cm LV Relative Wall Thickness 0.6 RV Internal Dim ED PLAX 2.7 cm 1.9 - 3.8 cm LVOT Diameter 1.9 cm Aortic Root Diameter 3.2 cm LA Systolic Diameter LX 3.9 cm 3.0 - 4.0 / 2.7 - 3.8 cm LA Volume 33.0 cm 18 - 58 / 22 - 52 cm Ascending Aorta Diameter 3.1 cm DOPPLER AV Peak Velocity 212.0 cm/s AV Peak Gradient 18.0 mmHg AV Mean Velocity 148.0 cm/s AV Mean Gradient 10.0 mmHg AV Velocity Time Integral 43.4 cm LVOT Peak Velocity 139.0 cm/s LVOT Peak Gradient 7.7 mmHg LVOT Mean Velocity 90.7 cm/s LVOT Mean Gradient 4.0 mmHg LVOT Velocity Time Integral 27.7 cm LVOT Stroke Volume 78.5 cm AV Area Cont Eq vti 1.8 cm AV Area Cont Eq pk 1.9 cm MV Peak Velocity 94.6 cm/s MV Peak Gradient 3.6 mmHg MV Mean Velocity 58.5 cm/s MV Mean Gradient 2.0 mmHg Mitral E Point Velocity 79.5 cm/s Mitral A Point Velocity 80.0 cm/s Mitral E to A Ratio 1.0 MV PHT Velocity 91.7 cm/s MV Deceleration [place] 362.0 cm/s MV Pressure Half Time 76.0 ms MV Area PHT 2.9 cm MV Deceleration Time 129.0 ms TR Peak Velocity 265.0 cm/s TR Peak Gradient 28.1 mmHg Right Atrial Pressure 5.0 mmHg Pulmonary Artery Systolic Pressu 33.1 mmHg Right Ventricular Systolic Press 33.1 mmHg PV Peak Velocity 89.6 cm/s PV Peak Gradient 3.2 mmHg PV Mean Velocity 65.5 cm/s PV Mean Gradient 2.0 mmHg PV Velocity Time Integral 22.8 cm LV E' Lateral Velocity 12.0 cm/s Mitral E to LV E' Lateral Ratio 6.6 LV E' Septal Velocity 5.5 cm/s Mitral E to LV E' Septal Ratio 14.6
[2017-04-04 22:39] VITALS: BP 135/63
--- NOTE | 2017-04-05 06:49 | PN- Housestaff ---
Fredis CARMICHAEL,Alphonso 04/05/17 0648: Subjective Follow-up For: influenza community acquired pneumonia Subjective: patient is feeling much better today, no fevers or chills, breathing better cough is improved but persistent Review of Systems Constitutional: Reports: see HPI. Objective Last 24 Hrs of Vital Signs/I&O Vital Signs Date Time Temp Pulse Resp B/P B/P Pulse O2 O2 Flow FiO2 Mean Ox Delivery Rate 04/05 0833 99.5 84 18 123/63 95 04/05 0800 Room Air 04/05 0707 98.9 85 18 133/77 96 Room Air 04/05 0700 98.9 85 18 133/77 96 Room Air 04/05 0200 99.8 / 0031 100.0 / 0006 100.0 93 18 140/78 98 Room Air / 2359 95 Room Air / 2300 101.5 02 2239 101.5 96 19 135/63 95 Room Air / 1742 98.1 87 18 155/72 02/ 1544 98.1 87 20 155/72 96 Room Air Physical Exam General Appearance: Alert, Oriented X3, Cooperative, No Acute Distress Cardiovascular: Regular Rate, Normal S1, Normal S2, No Murmurs Lungs: RLL crackles Abdomen: Normal Bowel Sounds, Soft, No Tenderness, No Masses Extremities: No Clubbing, No Cyanosis, No Edema, Normal Pulses Current Medications: Current Medications Sig/Carlyle Start time Last Medication Dose Route Stop Time Status Admin Acetaminophen 0 .STK-MED ONE 04/04 2248 DC PO Acetaminophen 650 MG Q6P PRN 04/03 2330 DCD 04/04 PO 2300 Atorvastatin Calcium 20 MG 1700 04/04 1700 DCD 04/04 PO 1742 Azithromycin 500 MG DAILY 04/04 1000 DCD 04/05 Dextrose/Water 250 ML IV 1152 Ceftriaxone Sodium 1,000 MG DAILY 04/04 1000 DCD 04/05 IV 1152 Enoxaparin Sodium 40 MG DAILY 04/04 1000 DCD 04/05 SC 1152 Fluticasone 2 SPRAY DAILY 04/04 1409 DCD 04/05 Propionate JENNIFER 1152 Ibuprofen 600 MG Q6P PRN 04/03 2330 DCD PO Insulin Aspart 0 TIDAC 04/04 799 DCD 04/04 SC 1718 Levothyroxine Sodium 0.05 MG DAILY AC 04/04 0700 DCD 04/05 PO 0655 Lisinopril 20 MG DAILY 04/05 1000 DCD 04/05 PO 1152 Lisinopril 20 MG ONE TIME ONE 04/04 1715 DC 04/04 PO 04/04 1716 1742 Oseltamivir Phosphate 30 MG BID 04/04 2200 DCD 04/05 PO 04/08 0959 1152 Senna/Docusate Sodium 1 TAB AT BEDTIME 04/04 2200 DCD 04/04 PO 2300 Sodium Chloride 2 SPRAY BID 04/04 1409 DCD 04/05 JENNIFER 1152 Assessment/Plan Assessment: 71 year old female with past medical history significant for HTN, HLD, DM, nonsmoker presents with fevers, chills and productive cough. Unknown sick contacts, had influenza vaccine, influenza positive on presentation Sepsis tachycardia/fever with multilobular community-acquired pneumonia patchy opacity in the left lower lobe and lingula. streaky peribronchial opacity in the medial aspect of the right lower lobe Intravascular volume resuscitation with crystalloid Continue ceftriaxone and azithromycin discharge on azithromycin and augmentin total one week course Influenza: Continue tamiflu and supportive care tyenol for antipyretics Hypertension: Held at admission Resumed lisinpopril Diabetes Hold oral hypoglycemics Novolog insulin sliding scale Accuchecks TIDAC/HS hgb a1c 8.5 Diabetic diet DVT ppx-lovenox 40mg subcutaneous daily Full code Stable for discharge home on tamiflu and oral antibiotics, albuterol to improve dyspnea Problem List: 1. Pneumonia 2. Influenza A Pain Ratin Pain Location: n/a Pain Goal: Pain 4 or less Pain Plan: prn Tomorrow's Labs & Rationales: none Andrew Guerrier MD 04/05/17 1418: Attending MD Review Statement Attending Statement Attending MD Statement: examined this patient, discuss w/resident/PA/DIRECTOR OF ACCOUNTS PAYABLE, agreed w/resident/PA/DIRECTOR OF ACCOUNTS PAYABLE, reviewed EMR data (avail) Attending Assessment/Plan: 71F PMH HTN, HLD, T2DM admitted with 1 week of fever, chills, cough, nasal congestion, found to be Influenza A positive with multilobar pneumonia on CXR, febrile 102.8 with tachycardia 110's, WBC 6.4. Patient feels better today. She looks well and only complains of fatigue and nasal congestion. 1. Influenza A multilobar pneumonia 2. Sepsis 3. Nasal congestion Plan - Stable for discharge - Continue Tamiflu - Short course of Azithromycin and Augmentin - Continue home meds
[2017-04-05 07:00] VITALS: BP 133/77
[2017-04-05 08:33] VITALS: BP 123/63
[2017-04-05] MEDS ORDERED: AUGMENTIN 875-1 EACH PO ×2 (09:53→11:47)
[2017-04-05] MEDS ORDERED: TAMIFLU30 M1 PO ×2 (09:53→11:47)
[2017-04-05] MEDS ORDERED: AZITHROMYCIN500 M3 PO ×2 (09:53→11:47)
--- NOTE | 2017-04-05 09:55 | Patient Discharge Instructions ---
Discharge Instructions General Discharge Information You were seen/treated for: influenza pneumonia Special Instructions: Follow up with your primary care physician in one week after discharge. Acute Coronary Syndrome Inclusion Criteria At DC or during hospital stay patient has or had the following: ACS DIAGNOSIS No Discharge Core Measures Meds if any: Prescribed or Continued at Discharge Meds if any: NOT Prescribed or Continued at Discharge Congestive Heart Failure Inclusion Criteria At DC or during hospital stay patient has or had the following: CHF DIAGNOSIS No Discharge Core Measures Meds if any: Prescribed or Continued at Discharge Meds if any: NOT Prescribed or Continued at Discharge Cerebrovascular accident Inclusion Criteria At DC or during hospital stay patient has or had the following: CVA/TIA Diagnosis No Discharge Core Measures Meds if any: Prescribed or Continued at Discharge Meds if any: NOT Prescribed or Continued at Discharge Venous thromboembolism Inclusion Criteria VTE Diagnosis No VTE Type NONE VTE Confirmed by (Test) NONE Discharge Core Measures - Per Current guidelines, there needs to be overlap - treatment for the first 5 days of Warfarin therapy. - If discharged on Warfarin prior to 5 days of - overlap therapy, the patient will need to be - assessed for post discharge needs including - *Post discharge parental anticoagulation - *Warfarin and/or parental anticoagulation education - *Follow up date to check INR post discharge At least 5 days overlap therapy as Inpatient No Meds if any: Prescribed or Continued at Discharge Note: Overlap Therapy is Warfarin and Anticoagulant Meds if any: NOT Prescribed or Continued at Discharge
[2017-04-05] MEDS ORDERED: PROAIR HFA8.5 GM INH (11:47)
--- NOTE | 2017-04-05 13:09 | Discharge Summary ---
Visit Information Visit Dates Admission Date: 04/03/17 Discharge Date: 04/05/17 Hospital Course Course Attending Physician: Andrew Guerrier MD Primary Care Physician: Pravin Ricketts DO Hospital Course: 71 year old female with past medical history significant for HTN, HLD, DM, nonsmoker presents with fevers, chills and productive cough. Unknown sick contacts, had influenza vaccine, influenza positive on presentation Sepsis tachycardia/fever with multilobular community-acquired pneumonia patchy opacity in the left lower lobe and lingula. streaky peribronchial opacity in the medial aspect of the right lower lobe Intravascular volume resuscitation with crystalloid Continue ceftriaxone and azithromycin discharge on azithromycin and augmentin total one week course Influenza: Continue tamiflu and supportive care tyenol for antipyretics Hypertension: Held at admission Resumed lisinpopril Diabetes Hold oral hypoglycemics Novolog insulin sliding scale Accuchecks TIDAC/HS hgb a1c 8.5 Diabetic diet DVT ppx-lovenox 40mg subcutaneous daily Full code Stable for discharge home on tamiflu and oral antibiotics, albuterol to improve dyspnea Allergies: Coded Allergies: NO KNOWN ALLERGIES (02/20/16) Discharge Instructions Medications at Discharge Discharge Medications: Continue taking these medications: Levothyroxine Sodium (Synthroid) 50 MCG TABLET 1 Tablet ORAL DAILY BEFORE BREAKFAST Comments: Last Taken: 04/05/17 Time: 07AM Simvastatin (Simvastatin*) 40 MG TABLET 1 Tablet ORAL Every Morning Qty = 30 Comments: NOT GIVEN IN HOSPITAL Metformin HCl (Metformin HCl ER) 500 MG TAB.ER.24H 1 Tablet ORAL Every Morning Comments: NOT GIVEN IN HOSPITAL Metformin HCl (Metformin HCl ER) 500 MG TAB.ER.24H 2 Tablet ORAL Every night Comments: NOT GIVEN IN HOSPITAL Lisinopril/Hydrochlorothiazide (Lisinopril-Hctz 20-25 MG Tab) 20 MG-25 MG TABLET 1 Tablet ORAL DAILY Qty = 90 Comments: Last Taken: 04/05/17 Time: 11 AM Start taking the following new medications: Azithromycin (Azithromycin) 500 MG TABLET 1 Tablet ORAL DAILY Qty = 4 No Refills Instructions: . Comments: IV MEDICATION GIVEN AT 11AM 04/05/17 Amoxicillin/Potassium Clav (Augmentin 875-125 Tablet) 875 MG-125 MG TABLET 1 Tablet ORAL TWICE DAILY Qty = 8 No Refills Instructions: . Comments: NOT GIVEN IN HOSPITAL Oseltamivir Phosphate (Tamiflu) 30 MG CAPSULE 1 Capsule ORAL TWICE DAILY Qty = 6 No Refills Instructions: . Comments: Last Taken: 04/05/17 Time: 11 AM Albuterol Sulfate (Proair Hfa) 90 MCG HFA.AER.AD 2 Puff Inhale through mouth EVERY 4-6 HOURS NEEDED as needed for FLU/ PNEUMONIA Qty = 1 No Refills Comments: NOT GIVEN IN HOSPITAL
== END 2017-04-05 14:07 | DRG 871 ==
LOC: ERH 16:21 → ERHI 21:54
PROVIDERS: Physician Assistant; Student in an Organized Health Care Education/Training Program
DX: A41.9 Sepsis, unspecified organism (principal); J18.9 Pneumonia, unspecified organism; J09.X2 Influenza due to identified novel influenza A virus with other respiratory manifestations; E11.9 Type 2 diabetes mellitus without complications; I10 Essential (primary) hypertension; E78.5 Hyperlipidemia, unspecified
CPT/HCPCS: ERO; 71046; 81001; 82436; 87040; 87070; 87086; 87449; 87450; 87804; 87804-59; 93005; 93010; 93306; J0456; J0696; J1650; J7060